=== PATIENT | male | born 2000 | race Caucasian/White ===

== ENCOUNTER 2022-08-14 16:20 | Emergency (ER) | payer SELFPAY ==
[~2022-08-14] VITALS: Ht 188 cm; Wt 157.0 kg
[2022-08-14 16:41] VITALS: BP 133/91
[2022-08-14] MEDS ORDERED: ONDANSETRON HCL 4MG/2ML INJ IV STA (16:54)
[2022-08-14] MEDS ORDERED: SODIUM CHLORIDE 0.9% 1,000 ML IV ONE (17:00)
[2022-08-14 18:04] LABS: BASOPHILS % 0.2 % (0.0-2.0); EOSINOPHILS % 0.1 % (0.0-5.0); HEMATOCRIT. 49.7 % (42.0-52.0); HEMOGLOBIN. 17.2 g/dL (14.0-18.0); LYMPHOCYTES % 14.5 % (20.0-50.0); MEAN CORPUSCULAR HEMOGLOBIN 29.5 pg (28.0-32.0); MEAN CORPUSCULAR VOLUME 85.5 fL (80.0-94.0); MEAN PLATELET VOLUME 8.3 fl (7.4-10.4); MONOCYTES % 6.6 % (2.0-8.0); NEUTROPHILS % 78.6 % (40.0-76.0); PLATELET 248 x1000/uL (130-400); RED BLOOD CELL COUNT 5.82 mill/uL (4.7-6.1); RED CELL DISTRIBUTION WIDTH 13.2 % (11.6-14.6)
[2022-08-14 18:13] LABS: CHLORIDE 105 mEq/L (98-107)
[2022-08-14] MEDS ORDERED: PANTOPRAZOLE SODIUM 40 MG/VIAL IV ONE (20:15)
[2022-08-14] MEDS ORDERED: ONDANSETRON HCL 4MG/2ML INJ IV NR (20:30)
[2022-08-14] MEDS ORDERED: FAMO40TA70 MT (23:51)
[2022-08-14] MEDS ORDERED: TOPUD MT (23:51)
[2022-08-14] MEDS ORDERED: ONDA4TAB50 MT (23:51)
== END 2022-08-15 00:13 | disposition home or self-care (01) ==
LOC: ER 16:20
DX: R11.2 Nausea with vomiting, unspecified (principal); R19.7 Diarrhea, unspecified; R50.9 Fever, unspecified; Z20.822 Contact with and (suspected) exposure to COVID-19
CPT/HCPCS: 36415; 80053; 83690; 85025; 87426; 96361; 96374; 96375; 99284; C9113; C9803; J2405; J7030; Z7610

== ENCOUNTER 2023-09-03 22:39 | Emergency (ER) | payer BC ==
[~2023-09-03] VITALS: Ht 188 cm; Wt 156.0 kg
[~2023-09-03 22:39] MED LIST: FAMO40TA70 MT; ONDA4TAB50 MT; TOPUD MT
[2023-09-03 22:48] VITALS: BP 172/95; PULSE 89; RESP 18; TEMP 97.8; O2SAT 98
[2023-09-03 23:56] LABS: BASOPHILS % 0.7 % (0.0-2.0); EOSINOPHILS % 0.5 % (0.0-5.0); LYMPHOCYTES % 27.7 % (20.0-50.0); MEAN CORPUSCULAR HEMOGLOBIN 30.2 pg (28.0-32.0); MEAN CORPUSCULAR HGB CONC 34.1 g/dL (31.0-37.0); MEAN CORPUSCULAR VOLUME 88.6 fL (80.0-94.0); MEAN PLATELET VOLUME 8.8 fl (7.4-10.4); MONOCYTES % 3.3 % (2.0-8.0); NEUTROPHILS % 67.8 % (40.0-76.0); PLATELET 274 x1000/uL (130-400); RED CELL DISTRIBUTION WIDTH 12.8 % (11.6-14.6)
[2023-09-04] LABS: CHLORIDE 105 mEq/L (98-107); POTASSIUM 4.1 mEq/L (3.5-5.1); SODIUM 138 mEq/L (136-145)
[2023-09-04 00:01] LABS: CALCIUM 8.8 mg/dL (8.7-10.4); CARBON DIOXIDE 28 mEq/L (21-32)
[2023-09-04 00:06] LABS: CREATININE 0.9 mg/dL (0.6-1.3); GLUCOSE 148 mg/dL (70-105); UREA NITROGEN BLOOD 11 mg/dL (9-23)
[2023-09-04] MEDS ORDERED: ALBU18HF2 IH (02:01)
[2023-09-04] MEDS ORDERED: FLUT9.9S BOTHNSTRLS (02:01)
== END 2023-09-04 02:00 | disposition home or self-care (01) ==
LOC: ER 22:39
DX: R05.3 Chronic cough (principal); J40 Bronchitis, not specified as acute or chronic; I10 Essential (primary) hypertension
CPT/HCPCS: 36415; 71046; 80048; 85025; 99284

== ENCOUNTER 2024-03-31 00:44 | Emergency (ER) | payer BC ==
[~2024-03-31] VITALS: Ht 188 cm; Wt 156.0 kg
[~2024-03-31 00:44] MED LIST changes: +ALBU18HF2 IH; +FLUT9.9S BOTHNSTRLS
[2024-03-31 00:51] VITALS: BP 164/99; PULSE 89; RESP 18; O2SAT 98
[2024-03-31 02:33] VITALS: TEMP 98.5
[2024-03-31] MEDS: ACETAMINOPHEN 325MG TABLET PO NR (02:33)
[2024-03-31] MEDS ORDERED: IBUP-2029 PO (02:41)
== END 2024-03-31 03:41 | disposition home or self-care (01) ==
LOC: ER 00:48
DX: S52.612A Displaced fracture of left ulna styloid process, initial encounter for closed fracture (principal); W18.39XA Other fall on same level, initial encounter; Y93.89 Activity, other specified; Y92.89 Other specified places as the place of occurrence of the external cause; Y99.8 Other external cause status
CPT/HCPCS: 29125; 73110; 99283

== ENCOUNTER 2024-05-20 07:09 | Emergency (ER) | payer BC ==
[~2024-05-20] VITALS: Ht 188 cm; Wt 156.0 kg
[~2024-05-20 07:09] MED LIST changes: +IBUP-2029 PO
[2024-05-20 07:11] VITALS: BP 140/78; TEMP 98.6; O2SAT 97
[2024-05-20 07:15] VITALS: PULSE 88; RESP 18; O2SAT 97
== END 2024-05-20 07:22 | disposition home or self-care (01) ==
LOC: ER 07:15
DX: J06.9 Acute upper respiratory infection, unspecified (principal); F10.90 Alcohol use, unspecified, uncomplicated; Z20.822 Contact with and (suspected) exposure to COVID-19; Y90.9 Presence of alcohol in blood, level not specified
CPT/HCPCS: 87426; 99283

== ENCOUNTER 2025-01-21 23:57 | Emergency (ER) | payer BC ==
[~2025-01-21] VITALS: Ht 185.4 cm; Wt 153.2 kg
[~2025-01-21 23:57] MED LIST changes: +IBUP-1455 PO; -IBUP-2029 PO
[2025-01-21 23:59] VITALS: O2SAT 99
[2025-01-22] MEDS: KETOROLAC 15MG/ML VIAL IV ONE (00:27)
[2025-01-22] MEDS: MAGNESIUM/ALUMINUM HYDROXIDE/SIMETHICONE 30ML UDC PO ONE (00:27)
[2025-01-22] MEDS: SODIUM CHLORIDE 0.9% 1,000 ML IV ONE (00:27)
[2025-01-22 01:08] LABS: BASOPHILS % 0.8 % (0.0-2.0); EOSINOPHILS % 0.7 % (0.0-5.0); HEMATOCRIT. 44.1 % (42.0-52.0); HEMOGLOBIN. 14.9 g/dL (14.0-18.0); LYMPHOCYTES % 29.4 % (20.0-50.0); MEAN PLATELET VOLUME 8.7 fl (7.4-10.4); MONOCYTES % 5.9 % (2.0-8.0); NEUTROPHILS % 63.2 % (40.0-76.0); PLATELET 264 x1000/uL (130-400); RED BLOOD CELL COUNT 5.04 mill/uL (4.7-6.1); RED CELL DISTRIBUTION WIDTH 12.9 % (11.6-14.6)
[2025-01-22 01:21] LABS: CREATININE 0.9 mg/dL (0.6-1.3)
[2025-01-22 01:22] LABS: UREA NITROGEN BLOOD 13 mg/dL (9-23)
[2025-01-22 01:23] LABS: ASPARTATE AMINOTRANSFERASE 20 IU/L (<34)
[2025-01-22 01:24] LABS: BILIRUBIN DIRECT 0.1 mg/dL (<=3.0); BILIRUBIN TOTAL 0.4 mg/dL (0.1-1.0); PROTEIN TOTAL 7.4 g/dL (6.0-8.3)
[2025-01-22] MEDS ORDERED: MAG355OR21 MT (03:28)
[2025-01-22] MEDS ORDERED: IBUP-1455 MT (03:28)
[2025-01-22] MEDS ORDERED: IMOD MT (03:28)
[2025-01-22] MEDS ORDERED: ONDA4TAB50 MT (03:28)
[2025-01-22 03:45] VITALS: BP 140/80; PULSE 80; RESP 14; TEMP 36.7; O2SAT 97
== END 2025-01-22 03:50 | disposition home or self-care (01) ==
LOC: ER 23:57
DX: B34.9 Viral infection, unspecified (principal); R10.84 Generalized abdominal pain; Z79.899 Other long term (current) drug therapy; Z20.822 Contact with and (suspected) exposure to COVID-19
CPT/HCPCS: 99285; 96374; 76705; 96361; 87426; 80076; 80048; 83690; 85025; 36415; J1885; J7030